=== PATIENT | male | born 1960 | race American Indian/Alaskan Native ===

== ENCOUNTER 2020-12-11 16:07 | Observation (INO) | payer OTHER ==
[2020-12-11 20:40] LABS: Basophils # (Auto) 0.1 K/mm3 (0.0-0.1); Basophils % (Auto) 0.7 % (0.0-1.8); Eosinophils % (Auto) 0.4 % (0.0-4.3); Hemoglobin 13.7 gm/dl (11.8-15.2); Lymphocytes # (Auto) 2.6 K/mm3 (1.2-5.4); Lymphocytes % (Auto) 22.2 % (13.4-35.0); Mean Corpuscular HGB Conc 34 % (32-34); Mean Corpuscular Volume 89 fl (84-94); Monocytes # (Auto) 1.2 K/mm3 (0.0-0.8); Monocytes % (Auto) 10.6 % (0.0-7.3); Platelet Count 328 K/mm3 (140-440); Red Blood Count 4.49 M/mm3 (3.65-5.03); Red Cell Distribution Width 14.3 % (13.2-15.2)
[2020-12-11 20:50] LABS: INR 0.84 (0.87-1.13)
[2020-12-11 20:51] LABS: Partial Thromboplastin Time 24.7 Sec. (24.2-36.6)
--- NOTE | 2020-12-11 20:58 | Emergency Department Report ---
ED Chest Pain HPI - General Chief Complaint: Dizziness Stated Complaint: HEADACHE/WEAKNESS/BLURRY VISION Time Seen by Provider: 12/11/20 20:05 Source: patient, EMS Mode of arrival: Stretcher Limitations: No Limitations - History of Present Illness Initial Comments: 60-year-old male with a past medical history of diabetes and hypertension presents to the hospital complaining of chest pain and lightheadedness while walking at 3 PM. Patient states he felt weak and everything looked "bright". He had states he had "a little" tightness in the middle of his chest with shortness of breath that lasted about 2 minutes. Positive associated diaphoresis without nausea, vomiting, or syncope. Patient thought symptoms were secondary to diabetes since he had not yet taken a second dose of Metformin. Patient is compliant with his medications. Reports that last stress test at the [facility] 3 to 4 months ago was normal. Denies calf tenderness, leg edema, history of PE/DVT, or pleuritic chest pain. Denies family history of CAD and is a non- smoker. Patient denies cough or fever. He is unvaccinated for Covid - Related Data Allergies Allergy/AdvReac Type Severity Reaction Status Date / Time No Known Allergies Allergy Verified 12/11/20 20:06 Heart Score - HEART Score History: Slightly suspicious EKG: Non-specific Age: 45-65 Risk factors: > 3 risk factors or hx of atherosclerotic disease Troponin: < normal limit HEART Score: 4 - EKG Read Time Time EKG Completed: 19:57 EKG Read Time: 19:54 ED Review of Systems ROS: Stated complaint: HEADACHE/WEAKNESS/BLURRY VISION Other details as noted in HPI Comment: All other systems reviewed and negative ED Past Medical Hx - Past Medical History Hx Diabetes: Yes - Social History Smoking Status: Never Smoker Substance Use Type: None ED Physical Exam - General Limitations: No Limitations - Other Other exam information: General: No acute distress Head: Atraumatic Eyes: normal appearance ENT: Moist mucous membranes Neck: Normal appearance, no midline tenderness Chest: Clear to auscultation bilaterally CV: Regular rate and rhythm Abdomen: Soft, normal bowel sounds, nontender, nondistended, no rebound or guarding Back: Normal inspection Extremity: Normal inspection, full range of motion, no calf tenderness or leg edema Neuro: Alert O x 3, no facial asymmetry, speech clear, no gross motor sensory deficit Psych: Appropriate behavior Skin: No rash ED Course Vital Signs 12/11/20 19:46 Temperature 98.8 F Pulse Rate 85 Respiratory 18 Rate Blood Pressure 129/84 O2 Sat by Pulse 99 Oximetry YOSEPH score - Yoseph Score Age > 65: (0) No Aspirin use within the Past 7 Days: (0) No 3 or more CAD Risk Factors: (1) Yes 2 or more Angina events in past 24 hrs: (0) No Known CAD with more than 50% Stenosis: (0) No Elevated Cardiac Markers: (0) No ST Deviation Greater than 0.5mm: (0) No YOSEPH Score: 1 ED Medical Decision Making - Lab Data Result diagrams: 12/11/20 20:00 12/11/20 20:00 Lab Results 12/11/20 12/11/20 12/11/20 Range/Units 20:00 20:00 20:00 WBC 11.5 H (4.5-11.0) K/mm3 RBC 4.49 (3.65-5.03) M/mm3 Hgb 13.7 (11.8-15.2) gm/dl Hct 40.0 (35.5-45.6) % MCV 89 (84-94) fl MCH 31 (28-32) pg MCHC 34 (32-34) % RDW 14.3 (13.2-15.2) % Plt Count 328 (140-440) K/mm3 Lymph % (Auto) 22.2 (13.4-35.0) % [place] % (Auto) 10.6 H (0.0-7.3) % Eos % (Auto) 0.4 (0.0-4.3) % Baso % (Auto) 0.7 (0.0-1.8) % Lymph # (Auto) 2.6 (1.2-5.4) K/mm3 [place] # (Auto) 1.2 H (0.0-0.8) K/mm3 Eos # (Auto) 0.0 (0.0-0.4) K/mm3 Baso # (Auto) 0.1 (0.0-0.1) K/mm3 Seg Neutrophils % 66.1 (40.0-70.0) % Seg Neutrophils # 7.6 (1.8-7.7) K/mm3 PT (12.2-14.9) Sec. INR (0.87-1.13) APTT (24.2-36.6) Sec. Sodium 137 (137-145) mmol/L Potassium 4.3 (3.6-5.0) mmol/L Chloride 101.6 (98-107) mmol/L Carbon Dioxide 21 L (22-30) mmol/L Anion Gap 19 mmol/L BUN 13 (9-20) mg/dL Creatinine 1.1 (0.8-1.3) mg/dL Estimated GFR > 60 ml/min BUN/Creatinine Ratio 12 % Glucose 136 H (75-100) mg/dL POC Glucose (70-105) mg/dL Calcium 9.4 (8.4-10.2) mg/dL Troponin T < 0.010 (0.00-0.029) ng/mL Plasma/Serum Alcohol < 0.01 (0-0.07) % 12/11/20 12/11/20 Range/Units 20:00 20:04 WBC (4.5-11.0) K/mm3 RBC (3.65-5.03) M/mm3 Hgb (11.8-15.2) gm/dl Hct (35.5-45.6) % MCV (84-94) fl MCH (28-32) pg MCHC (32-34) % RDW (13.2-15.2) % Plt Count (140-440) K/mm3 Lymph % (Auto) (13.4-35.0) % [place] % (Auto) (0.0-7.3) % Eos % (Auto) (0.0-4.3) % Baso % (Auto) (0.0-1.8) % Lymph # (Auto) (1.2-5.4) K/mm3 [place] # (Auto) (0.0-0.8) K/mm3 Eos # (Auto) (0.0-0.4) K/mm3 Baso # (Auto) (0.0-0.1) K/mm3 Seg Neutrophils % (40.0-70.0) % Seg Neutrophils # (1.8-7.7) K/mm3 PT 12.1 L (12.2-14.9) Sec. INR 0.84 L (0.87-1.13) APTT 24.7 (24.2-36.6) Sec. Sodium (137-145) mmol/L Potassium (3.6-5.0) mmol/L Chloride (98-107) mmol/L Carbon Dioxide (22-30) mmol/L Anion Gap mmol/L BUN (9-20) mg/dL Creatinine (0.8-1.3) mg/dL Estimated GFR ml/min BUN/Creatinine Ratio % Glucose (75-100) mg/dL POC Glucose 141 H (70-105) mg/dL Calcium (8.4-10.2) mg/dL Troponin T (0.00-0.029) ng/mL Plasma/Serum Alcohol (0-0.07) % - EKG Data -: EKG Interpreted by [facility] EKG shows normal: sinus rhythm, intervals (QTC 455), ST-T waves (No STEMI) Rate: normal - EKG Data When compared to previous EKG there are: previous EKG unavailable - Radiology Data Radiology results: report reviewed (cxr:[id number]) - Medical Decision Making 60-year-old male with several cardiac risk factors presents to the hospital shortness of breath and chest pain episode while ambulating. During ED evaluation patient does not have signs of acute ischemia based on EKG. No troponin elevation. Patient however does have heart score 4 and therefore will be admitted to the hospital for further work-up. He reports a [facility]. He denies risk factors for PE and denies previous PE/DVT in the past. Aspirin provided in the ED along with pvc monitor. Patient is pain-free at time of evaluation without recurrent pain prior to disposition Critical Care Time: No Critical care attestation.: If time is entered above; I have spent that time in minutes in the direct care of this critically ill patient, excluding procedure time. ED Disposition Clinical Impression: Chest pain, Diabetes, Hypertension Disposition: ADMITTED INPATIENT Is pt being admited?: Yes Condition: Stable Instructions: Diabetes Mellitus Type 2 in Adults (ED), Hypertension (ED) Time of Disposition: 21:53
[2020-12-11 21:02] LABS: BUN/Creatinine Ratio 12; Blood Urea Nitrogen 13 mg/dL (9-20); Calcium 9.4 mg/dL (8.4-10.2); Hemolysis Index 61
--- NOTE | 2020-12-11 21:17 | XRay Report ---
CHEST 1 VIEW INDICATION / CLINICAL INFORMATION: Chest Pain. COMPARISON: None available. FINDINGS: SUPPORT DEVICES: None. HEART / MEDIASTINUM: No significant abnormality. LUNGS / PLEURA: No significant pulmonary or pleural abnormality. No pneumothorax. ADDITIONAL FINDINGS: No significant additional findings. IMPRESSION: 1. No acute findings. Signer Name: Everette Shaffer MD Signed: 12/11/2020 9:13 PM Workstation Name: [id number]
--- NOTE | 2020-12-11 22:54 | History and Physical Report ---
History of Present Illness Date of examination: 12/11/20 Date of admission: 12/11/20 21:53 Chief complaint: Chest Pain History of present illness: 60-year-old male with known history of hypertension and diabetes mellitus presenting to the emergency room today complaining of chest pain and lightheadedness which started sometime this afternoon. Chest pain felt like tightness in the middle of the chest and he had associated shortness of breath. He denies any nausea vomiting, no abdominal pain, no headache and no diaphoresis. No known relieving or exacerbating factor. Patient states he had a stress test at the [facility] in [place] about 4 months ago and it was within normal limits. Work-up in the emergency room today, troponin, chest x-ray and EKG were within normal limits Patient be admitted for chest pain evaluation. Past History Past Medical History: diabetes Past Surgical History: No surgical history Social history: no significant social history Family history: no significant family history Medications and Allergies Allergies Allergy/AdvReac Type Severity Reaction Status Date / Time No Known Allergies Allergy Verified 12/11/20 20:06 Review of Systems Constitutional: no fever, no chills Ears, nose, mouth and throat: no nasal congestion, no sore throat Cardiovascular: chest pain, no palpitations Respiratory: shortness of breath, no cough Gastrointestinal: no abdominal pain, no nausea, no vomiting, no diarrhea Genitourinary Male: no dysuria, no hematuria, no flank pain, no nocturia Musculoskeletal: no neck pain, no low back pain Integumentary: no rash, no pruritis Neurological: other (Lightheadedness), no headaches Psychiatric: no anxiety, no depression Endocrine: no polydipsia, no polyuria, no nocturia Exam - Constitutional Vitals: Temp Pulse Resp BP Pulse Ox 98.8 F 85 18 129/84 99 12/11/20 19:46 12/11/20 19:46 12/11/20 19:46 12/11/20 19:46 12/11/20 19:46 General appearance: Present: no acute distress, well-nourished - EENT Eyes: Present: PERRL, EOM intact. Absent: scleral icterus ENT: hearing intact, clear oral mucosa, dentition normal - Neck Neck: Present: supple, normal ROM - Respiratory Respiratory effort: normal Respiratory: bilateral: CTA - Cardiovascular Rhythm: regular Heart Sounds: Present: S1 & S2. Absent: gallop, systolic murmur, diastolic murmur, rub, click - Extremities Extremities: no ischemia, pulses intact, pulses symmetrical, No edema, normal temperature, normal color, Full ROM Peripheral Pulses: within normal limits - Abdominal General gastrointestinal: Present: soft, non-tender, non-distended, normal bowel sounds. Absent: mass - Integumentary Integumentary: Present: clear, warm, dry. Absent: rash - Musculoskeletal Musculoskeletal: strength equal bilaterally - Psychiatric Psychiatric: appropriate mood/affect, intact judgment & insight, memory intact, cooperative - Neurologic Neurologic: CNII-XII intact, no focal deficits, moves all extremities HEART Score - HEART Score History: Slightly suspicious EKG: Non-specific Age: 45-65 Risk factors: > 3 risk factors or hx of atherosclerotic disease Troponin: Troponin T < 0.010 ng/mL (0.00-0.029) 12/11/20 20:00 Troponin: < normal limit HEART Score: 4 Results - Labs CBC & Chem 7: 12/11/20 23:01 12/11/20 23:01 Labs: Abnormal lab results 12/11/20 12/11/20 12/11/20 Range/Units 20:00 20:00 20:00 WBC 11.5 H (4.5-11.0) K/mm3 [place] % (Auto) 10.6 H (0.0-7.3) % [place] # (Auto) 1.2 H (0.0-0.8) K/mm3 PT 12.1 L (12.2-14.9) Sec. INR 0.84 L (0.87-1.13) Carbon Dioxide 21 L (22-30) mmol/L Glucose 136 H (75-100) mg/dL POC Glucose (70-105) mg/dL 12/11/20 Range/Units 20:04 WBC (4.5-11.0) K/mm3 [place] % (Auto) (0.0-7.3) % [place] # (Auto) (0.0-0.8) K/mm3 PT (12.2-14.9) Sec. INR (0.87-1.13) Carbon Dioxide (22-30) mmol/L Glucose (75-100) mg/dL POC Glucose 141 H (70-105) mg/dL Assessment and Plan - Patient Problems (1) Chest pain Current Visit: Yes Status: Acute Plan to address problem: Patient admitted and placed on telemetry. We will check serial cardiac enzymes. Patient started on daily aspirin, sublingual nitro and IV morphine as needed for chest pain. Patient had a stress test about 4 to 5 months ago which was within normal limits. We will await further evaluation by cardiology. (2) Diabetes Current Visit: Yes Status: Acute Plan to address problem: We will monitor Accu-Cheks closely. Patient placed on sliding scale insulin. (3) Hypertension Current Visit: Yes Status: Acute Plan to address problem: We will resume routine home medications once reconciled. We will monitor vital signs closely. (4) DVT prophylaxis Current Visit: Yes Status: Acute Plan to address problem: Patient placed on subcutaneous heparin. (5) Full code status Current Visit: Yes Status: Acute Plan to address problem: Patient is full code.
[2020-12-11] MEDS ORDERED: DEXTROSE 50% IN WATER (25GM) 50 ML SYRINGE IV PRN (23:30)
[2020-12-11] MEDS ORDERED: MAGNESIUM HYDROXIDE (MOM) ORAL LIQD UDC PO PRN (23:30)
[2020-12-11] MEDS ORDERED: ACETAMINOPHEN 325 MG TAB PO PRN (23:30)
[2020-12-11] MEDS ORDERED: NITROGLYCERIN 0.4 MG TAB SUBL SL PRN (23:30)
[2020-12-11] MEDS ORDERED: MORPHINE 4 MG/1 ML INJ IV PRN (23:30)
[2020-12-11] MEDS ORDERED: ONDANSETRON 4 MG/2 ML INJ IV PRN (23:30)
[2020-12-11] MEDS ORDERED: MORPHINE 2 MG/1 ML INJ IV PRN (23:30)
[2020-12-11 23:38] LABS: Basophils % (Auto) 0.4 % (0.0-1.8); Eosinophils # (Auto) 0.1 K/mm3 (0.0-0.4); Eosinophils % (Auto) 0.9 % (0.0-4.3); Hematocrit 39.3 % (35.5-45.6); Hemoglobin 13.1 gm/dl (11.8-15.2); Mean Corpuscular HGB Conc 33 % (32-34); Mean Corpuscular Volume 89 fl (84-94); Monocytes # (Auto) 1.1 K/mm3 (0.0-0.8); Monocytes % (Auto) 11.4 % (0.0-7.3); Platelet Count 365 K/mm3 (140-440); Red Blood Count 4.44 M/mm3 (3.65-5.03); Red Cell Distribution Width 14.1 % (13.2-15.2)
[2020-12-11 23:47] LABS: BUN/Creatinine Ratio 12; Blood Urea Nitrogen 12 mg/dL (9-20); Calcium 9.2 mg/dL (8.4-10.2); Hemolysis Index 32
[2020-12-12 03:05] LABS: Chol/HDL Ratio 5.1 %
[2020-12-12 05:02] LABS: Basophils % (Auto) 0.5 % (0.0-1.8); Eosinophils # (Auto) 0.1 K/mm3 (0.0-0.4); Eosinophils % (Auto) 1.6 % (0.0-4.3); Hematocrit 39.6 % (35.5-45.6); Hemoglobin 13.5 gm/dl (11.8-15.2); Lymphocytes # (Auto) 2.8 K/mm3 (1.2-5.4); Lymphocytes % (Auto) 37.4 % (13.4-35.0); Mean Corpuscular HGB Conc 34 % (32-34); Mean Corpuscular Volume 89 fl (84-94); Monocytes % (Auto) 13.6 % (0.0-7.3); Platelet Count 312 K/mm3 (140-440); Red Blood Count 4.45 M/mm3 (3.65-5.03); Red Cell Distribution Width 14.2 % (13.2-15.2)
[2020-12-12 05:12] LABS: INR 0.87 (0.87-1.13)
[2020-12-12 05:21] LABS: BUN/Creatinine Ratio 11; Blood Urea Nitrogen 12 mg/dL (9-20); Calcium 9.2 mg/dL (8.4-10.2); Hemolysis Index 18
[2020-12-12] MEDS: INSULIN LISPRO 100 UNIT/ML SUB-Q SCH ×4 (08:30→21:17)
[2020-12-12] MEDS: ASPIRIN EC 325 MG TAB PO SCH (10:14)
--- NOTE | 2020-12-12 10:17 | Progress Note ---
Assessment and Plan Assessment and plan: Chest pain Diabetes mellitus type 2. Hypertension DVT prophylaxis. 12/12/2020. Continue to monitor cardiac isoenzymes which have thus far been negative. EKGs negative. Patient reportedly with a stress test approximately 4 months ago at the [facility] in [place]. Await cardiology's evaluation and recommend ations regarding ischemic evaluation. Continue SSRI and Accu-Cheks. Continue home antihypertensive medications History Interval history: No new issues overnight Hospitalist Physical - Constitutional Vitals: Temp Pulse Resp BP Pulse Ox 97.8 F 55 L 14 164/66 99 12/12/20 00:57 12/12/20 09:00 12/12/20 09:00 12/12/20 09:00 12/12/20 09:00 General appearance: Present: no acute distress, well-nourished - EENT Eyes: Present: PERRL, EOM intact ENT: hearing intact, clear oral mucosa, dentition normal - Neck Neck: Present: supple, normal ROM - Respiratory Respiratory effort: normal Respiratory: bilateral: CTA - Cardiovascular Rhythm: regular Heart Sounds: Present: S1 & S2. Absent: gallop, rub - Extremities Extremities: no ischemia, No edema, Full ROM - Abdominal General gastrointestinal: soft, non-tender, non-distended, normal bowel sounds - Integumentary Integumentary: Present: clear, warm, dry - Neurologic Neurologic: CNII-XII intact, moves all extremities HEART Score - HEART Score EKG: Non-specific Age: 45-65 Risk factors: > 3 risk factors or hx of atherosclerotic disease Troponin: Troponin T < 0.010 ng/mL (0.00-0.029) 12/12/20 04:23 Troponin: < normal limit Results - Labs CBC & Chem 7: 12/12/20 04:23 12/12/20 04:23 Labs: Laboratory Last Values WBC 7.6 K/mm3 (4.5-11.0) 12/12/20 04:23 RBC 4.45 M/mm3 (3.65-5.03) 12/12/20 04:23 Hgb 13.5 gm/dl (11.8-15.2) 12/12/20 04:23 Hct 39.6 % (35.5-45.6) 12/12/20 04:23 MCV 89 fl (84-94) 12/12/20 04:23 MCH 30 pg (28-32) 12/12/20 04:23 MCHC 34 % (32-34) 12/12/20 04:23 RDW 14.2 % (13.2-15.2) 12/12/20 04:23 Plt Count 312 K/mm3 (140-440) 12/12/20 04:23 Lymph % (Auto) 37.4 % (13.4-35.0) H 12/12/20 04:23 [place] % (Auto) 13.6 % (0.0-7.3) H 12/12/20 04:23 Eos % (Auto) 1.6 % (0.0-4.3) 12/12/20 04:23 Baso % (Auto) 0.5 % (0.0-1.8) 12/12/20 04:23 Lymph # (Auto) 2.8 K/mm3 (1.2-5.4) 12/12/20 04:23 [place] # (Auto) 1.0 K/mm3 (0.0-0.8) H 12/12/20 04:23 Eos # (Auto) 0.1 K/mm3 (0.0-0.4) 12/12/20 04:23 Baso # (Auto) 0.0 K/mm3 (0.0-0.1) 12/12/20 04:23 Seg Neutrophils % 46.9 % (40.0-70.0) 12/12/20 04:23 Seg Neutrophils # 3.6 K/mm3 (1.8-7.7) 12/12/20 04:23 PT 12.4 Sec. (12.2-14.9) 12/12/20 04:23 INR 0.87 (0.87-1.13) 12/12/20 04:23 APTT 24.7 Sec. (24.2-36.6) 12/11/20 20:00 Sodium 138 mmol/L (137-145) 12/12/20 04:23 Potassium 4.1 mmol/L (3.6-5.0) 12/12/20 04:23 Chloride 104.1 mmol/L (98-107) 12/12/20 04:23 Carbon Dioxide 25 mmol/L (22-30) 12/12/20 04:23 Anion Gap 13 mmol/L 12/12/20 04:23 BUN 12 mg/dL (9-20) 12/12/20 04:23 Creatinine 1.1 mg/dL (0.8-1.3) 12/12/20 04:23 Estimated GFR > 60 ml/min 12/12/20 04:23 BUN/Creatinine Ratio 11 % 12/12/20 04:23 Glucose 168 mg/dL (75-100) H 12/12/20 04:23 POC Glucose 181 mg/dL (70-105) H 12/12/20 08:09 Calcium 9.2 mg/dL (8.4-10.2) 12/12/20 04:23 Troponin T < 0.010 ng/mL (0.00-0.029) 12/12/20 04:23 Triglycerides 111 mg/dL (2-149) 12/11/20 23:01 Cholesterol 199 mg/dL (50-199) 12/11/20 23:01 LDL Cholesterol Direct 145 mg/dL (50-130) H 12/11/20 23:01 HDL Cholesterol 39 mg/dL (40-59) L 12/11/20 23:01 Cholesterol/HDL Ratio 5.10 % 12/11/20 23:01 Plasma/Serum Alcohol < 0.01 % (0-0.07) 12/11/20 20:00 Garcia/IV: Voiding Method Toilet Active Medications - Current Medications Current Medications: Generic Name Dose Route Start Last Admin Trade Name Freq PRN Reason Stop Dose Admin Acetaminophen 650 mg 12/11/20 23:30 Acetaminophen 325 Mg Tab PO Q4H PRN Pain MILD(1-3)/Fever >100.5/GUARDADO Aspirin 325 mg 12/12/20 10:00 12/12/20 10:14 Aspirin Ec 325 Mg Tab PO 325 mg QDAY GABBIE Administration Dextrose 50 ml 12/11/20 23:30 Dextrose 50% In Water (25gm) 50 Ml Syringe IV Q30MIN PRN Hypoglycemia Protocol Insulin Human Lispro 0 unit 12/12/20 07:30 12/12/20 08:30 Insulin Lispro 100 Unit/Ml SUB-Q Not Given ACHS GABBIE Protocol Magnesium Hydroxide 30 ml 12/11/20 23:30 Magnesium Hydroxide (Mom) Oral Liqd Udc PO Q4H PRN Constipation Morphine Sulfate 2 mg 12/11/20 23:30 Morphine 2 Mg/1 Ml Inj IV Q4H PRN Pain, Moderate (4-6) Morphine Sulfate 4 mg 12/11/20 23:30 Morphine 4 Mg/1 Ml Inj IV Q4H PRN Pain , Severe (7-10) Nitroglycerin 0.4 mg 12/11/20 23:30 Nitroglycerin 0.4 Mg Tab Subl SL Q5M PRN Chest Pain Ondansetron HCl 4 mg 12/11/20 23:30 Ondansetron 4 Mg/2 Ml Inj IV Q8H PRN Nausea And Vomiting Sodium Chloride 10 ml 12/12/20 10:00 Sodium Chloride 0.9% 10 Ml Flush Syringe IV BID GABBIE Sodium Chloride 10 ml 12/11/20 23:30 Sodium Chloride 0.9% 10 Ml Flush Syringe IV PRN PRN LINE FLUSH Sodium Chloride 10 ml 12/11/20 23:30 Sodium Chloride 0.9% 10 Ml Flush Syringe IV PRN PRN LINE FLUSH Nutrition/Malnutrition Assess - Dietary Evaluation Nutrition/Malnutrition Findings: Nutrition Notes Start: 12/12/20 10:11 Freq: Status: Active Protocol: Document 12/12/20 10:11 FERNANDEZ (Rec: 12/12/20 10:12 FERNANDEZ [id number]) Nutrition Notes Need for Assessment generated from: MD Order,Education Initial or Follow up Brief Note Current Diagnosis Diabetes,Hypertension Other Pertinent Diagnosis Chest pain Subjective/Other Information RD consulted for diet education. Pt in ED at this time. Nutrition Intervention Follow-Up By: 12/14/20 Additional Comments F/U: transfer to medical floor , diet education needs
--- NOTE | 2020-12-12 11:49 | Consultation ---
History of Present Illness Consult date: 12/12/20 Consult reason: chest pain History of present illness: This is a 60-year old M who presents to this hospital with near syncope. Patient reports dizziness, diaphoresis, weakness, and chest discomfort on yesterday. Patient has a history of diabetes and reports he felt as if his blood glucose was low but was unable to check at that time. Patient states he drunk orange juice, ate pieces of candy, and called EMS. On EMS arrival, patient reports a blood glucose was 173. He was brought in and admitted for evaluation. A cardiac consultation has been requested for chest pain. Currently, the patient no longer has chest pain. Denies shortness of breath and denies palpations. Troponin measurements were normal. There is no prior cardiac history. He reports 3-4 months ago, he underwent a thallium stress test at the [facility] with report of normal findings. A 12 lead ECG is sinus rhythm, no acute ischemic changes. Past History Past Medical History: diabetes, hypertension Past Surgical History: No surgical history Social history: no significant social history Family history: no significant family history Medications and Allergies Allergies Allergy/AdvReac Type Severity Reaction Status Date / Time No Known Allergies Allergy Verified 12/11/20 20:06 Active Meds: Active Medications Acetaminophen (Acetaminophen 325 Mg Tab) 650 mg PO Q4H PRN PRN Reason: Pain MILD(1-3)/Fever >100.5/GUARDADO Aspirin (Aspirin Ec 325 Mg Tab) 325 mg PO QDAY [facility] Last Admin: 12/12/20 10:14 Dose: 325 mg Documented by: Dextrose (Dextrose 50% In Water (25gm) 50 Ml Syringe) 50 ml IV Q30MIN PRN; Protocol PRN Reason: Hypoglycemia Insulin Human Lispro (Insulin Lispro 100 Unit/Ml) 0 unit SUB-Q [facility]; Protocol Last Admin: 12/12/20 08:30 Dose: Not Given Documented by: Magnesium Hydroxide (Magnesium Hydroxide (Mom) Oral Liqd Udc) 30 ml PO Q4H PRN PRN Reason: Constipation Morphine Sulfate (Morphine 2 Mg/1 Ml Inj) 2 mg IV Q4H PRN PRN Reason: Pain, Moderate (4-6) Morphine Sulfate (Morphine 4 Mg/1 Ml Inj) 4 mg IV Q4H PRN PRN Reason: Pain , Severe (7-10) Nitroglycerin (Nitroglycerin 0.4 Mg Tab Subl) 0.4 mg SL Q5M PRN PRN Reason: Chest Pain Ondansetron HCl (Ondansetron 4 Mg/2 Ml Inj) 4 mg IV Q8H PRN PRN Reason: Nausea And Vomiting Sodium Chloride (Sodium Chloride 0.9% 10 Ml Flush Syringe) 10 ml IV BID GABBIE Sodium Chloride (Sodium Chloride 0.9% 10 Ml Flush Syringe) 10 ml IV PRN PRN PRN Reason: LINE FLUSH Review of Systems Cardiovascular: chest pain, lightheadedness, no palpitations, no edema, no syncope, no shortness of breath Physical Examination Vital Signs Pulse Resp 84 20 12/11/20 19:36 12/11/20 19:36 General appearance: no acute distress HEENT: Positive: PERRL Neck: Positive: trachea midline Cardiac: Positive: Reg Rate and Rhythm Lungs: Positive: Normal Breath Sounds Neuro: Positive: Grossly Intact Extremities: Absent: edema Results 12/12/20 04:23 12/12/20 04:23 Coagulation 12/11/20 12/12/20 Range/Units 20:00 04:23 PT 12.1 L 12.4 (12.2-14.9) Sec. INR 0.84 L 0.87 (0.87-1.13) APTT 24.7 (24.2-36.6) Sec. Lipids 12/11/20 Range/Units 23:01 Triglycerides 111 (2-149) mg/dL Cholesterol 199 (50-199) mg/dL HDL Cholesterol 39 L (40-59) mg/dL Cholesterol/HDL Ratio 5.10 % CBC 12/11/20 12/11/20 12/12/20 Range/Units 20:00 23:01 04:23 WBC 11.5 H 9.8 7.6 (4.5-11.0) K/mm3 RBC 4.49 4.44 4.45 (3.65-5.03) M/mm3 Hgb 13.7 13.1 13.5 (11.8-15.2) gm/dl Hct 40.0 39.3 39.6 (35.5-45.6) % Plt Count 328 365 312 (140-440) K/mm3 Lymph # (Auto) 2.6 3.0 2.8 (1.2-5.4) K/mm3 [place] # (Auto) 1.2 H 1.1 H 1.0 H (0.0-0.8) K/mm3 Eos # (Auto) 0.0 0.1 0.1 (0.0-0.4) K/mm3 Baso # (Auto) 0.1 0.0 0.0 (0.0-0.1) K/mm3 Comprehensive Metabolic Panel 12/11/20 12/11/20 12/12/20 Range/Units 20:00 23:01 04:23 Sodium 137 139 138 (137-145) mmol/L Potassium 4.3 3.9 4.1 (3.6-5.0) mmol/L Chloride 101.6 104.9 104.1 (98-107) mmol/L Carbon Dioxide 21 L 24 25 (22-30) mmol/L BUN 13 12 12 (9-20) mg/dL Creatinine 1.1 1.0 1.1 (0.8-1.3) mg/dL Glucose 136 H 155 H 168 H (75-100) mg/dL Calcium 9.4 9.2 9.2 (8.4-10.2) mg/dL Assessment and Plan - Patient Problems (1) Chest pain Current Visit: Yes Status: Acute
[2020-12-13] MEDS: INSULIN LISPRO 100 UNIT/ML SUB-Q SCH ×2 (08:47→12:25)
[2020-12-13] MEDS: ASPIRIN EC 325 MG TAB PO SCH (09:05)
--- NOTE | 2020-12-13 09:08 | Discharge Summary ---
Providers - Providers Date of Admission: 12/11/20 21:53 Date of discharge: 12/13/20 Attending physician: CHRISTELLE RUBIO 12/11/20 Consult to Cardiac Rehabilitation [CONS] Routine Reason For Exam: Phase I 12/11/20 22:39 Consult to Dietitian/Nutrition [CONS] Routine Physician Instructions: Reason For Exam: Reason for Consult: Diet education 12/11/20 22:47 Consult to Cardiology [CONS] Routine Consulting Provider: FRANK STROUD Reason For Exam: chest pain Hospitalization Reason for admission: Chest pain Condition: Stable Hospital course: 60-year-old male with known history of hypertension and diabetes mellitus presenting to the emergency room today complaining of chest pain and lightheadedness which started the afternoon [employer] TH[employer]. Chest pain felt like tightness in the middle of the chest and he had associated shortness of breath. He denied any nausea vomiting, no abdominal pain, no headache and no diaphoresis. No known relieving or exacerbating factor. Patient stated he had a stress test at the [facility] in [place] about 4 months ago and it was within normal limits. Work-up in the emergency room today, troponin, chest x-ray and EKG were within normal limits. Echocardiogram was ordered and revealed mild concentric left ventricular hypertrophy with EF of 60% with no other acute findings. Cardiology was consulted for further evaluation. Cardiology felt that based on the patient's description, his symptoms appeared to have been related to low BG and thus did not recommend any cardiac work-up. Cardiology felt the patient was stable for discharge from cardiac standpoint. Etiology of chest pain likely secondary to GERD. Patient's BG remained stable throughout hospitalization. Dedicated discharge time 32 minutes Disposition: 01 HOME / SELF CARE / HOMELESS Final Discharge Diagnosis (Prints w/discharge instructions): Chest pain, GERD, dizziness Core Measure Documentation - Palliative Care Palliative Care/ Comfort Measures: Not Applicable - Core Measures Any of the following diagnoses?: none Exam - Constitutional Vitals: Temp Pulse Resp BP Pulse Ox 98.5 F 75 20 111/70 98 12/13/20 07:54 12/13/20 07:54 12/13/20 07:54 12/13/20 07:54 12/13/20 07:54 General appearance: Present: no acute distress, well-nourished - EENT Eyes: Present: PERRL ENT: hearing intact, clear oral mucosa - Neck Neck: Present: supple, normal ROM - Respiratory Respiratory effort: normal Respiratory: bilateral: CTA - Cardiovascular Heart Sounds: Present: S1 & S2. Absent: rub, click - Extremities Extremities: pulses symmetrical, No edema Peripheral Pulses: within normal limits - Abdominal General gastrointestinal: Present: soft, non-tender, non-distended, normal bowel sounds Male genitourinary: Present: normal - Integumentary Integumentary: Present: clear, warm, dry - Musculoskeletal Musculoskeletal: gait normal, strength equal bilaterally - Psychiatric Psychiatric: appropriate mood/affect, intact judgment & insight - Neurologic Neurologic: CNII-XII intact, moves all extremities Plan Activity: advance as tolerated Weight Bearing Status: Weight Bear as Tolerated Diet: low cholesterol, low salt
[2020-12-13 11:53] VITALS: BP 128/85
--- NOTE | 2020-12-17 14:14 | Electrocardiograph Report ---
[facility] Test Date: 2020-12-11 Test Time: 19:54:29 Pat Name: GOPAL MUNGUIA JR Department: Room: A474 1 Gender: M Instructor Pilot: IZABEL GARCIAB: 1960 Requested By: SANJANA JUDD Order Number: [id number] Reading MD: Gordo Wharton Measurements Intervals [place] Rate: 84 P: 75 MT: 159 QRS: 0 QRSD: 103 T: 56 QT: 386 QTc: 455 Interpretive Statements Sinus rhythm Normal ECG No previous ECG available for comparison Electronically Signed On 12-17-2020 14:14:04 EDT by Gordo Wharton
--- NOTE | 2020-12-17 14:19 | Electrocardiograph Report ---
[facility] Test Date: 2020-12-12 Test Time: 11:49:28 Pat Name: GOPAL MUNGUIA JR Department: Room: A474 1 Gender: M Factorer: ARVIND : 1960 Requested By: SOLO COTTO Order Number: [id number] Reading MD: Gordo Wharton Measurements Intervals [place] Rate: 78 P: 70 NE: 160 QRS: 53 QRSD: 107 T: 44 QT: 395 QTc: 450 Interpretive Statements Sinus rhythm Essentially normal ECG Compared to ECG 12/11/2020 19:54:29 No significant change Electronically Signed On 12-17-2020 14:19:29 EDT by Gordo Wharton
--- NOTE | 2020-12-17 14:28 | Electrocardiograph Report ---
[facility] Test Date: 2020-12-13 Test Time: 07:37:03 Pat Name: GOPAL MUNGUIA JR Department: Room: A474 1 Gender: M Member Services Coordinator: GIOVANNA : 1960 Requested By: SOLO COTTO Order Number: [id number] Reading MD: Gordo Wharton Measurements Intervals [place] Rate: 76 P: 76 [place]: 157 QRS: 20 QRSD: 112 T: 60 QT: 406 QTc: 457 Interpretive Statements Sinus rhythm Normal ECG Compared to ECG 12/12/2020 11:49:28 No significant change Electronically Signed On 12-17-2020 14:28:06 EDT by Gordo Wharton
== END 2020-12-13 13:25 | disposition home or self-care (01) ==
LOC: ED 16:07 → 4A 21:53
PROVIDERS: ADMIT Internal Medicine Geriatric Medicine; ATTEND Hospitalist
DX: R07.89 Other chest pain (principal); I10 Essential (primary) hypertension; E11.9 Type 2 diabetes mellitus without complications; Z79.82 Long term (current) use of aspirin; Z79.4 Long term (current) use of insulin
CPT/HCPCS: 36415; 71045; 80048; 80061; 82962; 84484; 85025; 85610; 85730; 93005; 93306; 96372; 99285; G0378; 80320; G0480; J1815